=== PATIENT | female | born 1990 | race Caucasian/White ===

== ENCOUNTER 2023-08-12 19:07 | Emergency (ER) | payer SELFPAY ==
--- NOTE | ~2023-08-12 | XR_ITS ---
XR chest 1V portable DATE: 08/12/2023 19:44 INDICATION: Sudden onset of anterior left chest pain TECHNIQUE: Portable AP chest on 08/12/2023 1929 hours COMPARISON: None FINDINGS: Normal heart size. No hilar or mediastinal enlargement. No pulmonary infiltrate or consolid ation, pleural effusion or pulmonary vascular congestion or pneumothorax. IMPRESSION: Negative Reviewed, dictated and finalized at location A. IMPRESSION: Negative
--- NOTE | 2023-08-12 19:18 | ECG_ITS ---
Measurements Intervals [place] Rate: 97 P: 30 MA: 129 QRS: 62 QRSD: 82 T: 9 QT: 318 QTc: 405 Interpretive Statements SINUS RHYTHM WITH MARKED SINUS ARRHYTHMIA DELAYED PRECORDIAL R/S TRANSITION BASELINE ARTIFACT- I, II, III, AVR, AVL, AVF, V3-V4, V6 BORDERLINE ECG NO PREVIOUS ECG AVAILABLE FOR COMPARISON Electronically Signed On 08-12-2023 20:25:28 CDT by Adam Jurado D.O.
[2023-08-12 19:21] VITALS: BP 144/104; PULSE 107; RESP 18; TEMP 36.6; O2SAT 100
[2023-08-12 19:24] VITALS: PULSE 115
--- NOTE | 2023-08-12 19:32 | ED.CHESTPAIN ---
HPI - Chest Pain General Chief Complaint: Chest Pain Stated Complaint: cp Time Seen by Provider: 08/12/23 19:16 Source: patient and EMS Mode of arrival: EMS Limitations: no limitations History of Present Illness HPI narrative: 32 years old white female came to the emergency room by ambulance from work because of sudden onset of severe left chest pain, sharp stabbing, worse with breathing and certain movement, started 1 hour prior to arrival. Patient on antidepression and antianxiety medication, she denies any fever, chills, nausea, vomiting, shortness of breath, back pain. Patient works at the assisted as a FIBER ARTIST. Related Data Allergies Allergy/AdvReac Type Severity Reaction Status Date / Time aspirin Allergy Swelling Verified 08/12/23 19:25 Penicillins Allergy Unknown Verified 08/12/23 19:25 Review of Systems Review of Systems: All systems reviewed & are unremarkable except as noted in HPI and below Exam Narrative: General appearance: Well-developed, well-nourished, hyperventilating, restless, anxious Skin: Normal color Head: Normocephalic, nontraumatic Eyes: Clear conjunctiva ENT: Oropharynx normal, ears normal, nose normal Neck: Supple, nontender Chest and respiratory: Airway patent, no respiratory distress, no accessory muscle use, severe tenderness left chest with light palpation, no bruises, no swelling or rash Heart: Regular rate/rhythm, tachycardia Abdomen: Soft, nontender, no organomegaly, quiet bowel sounds Vascular: Normal peripheral pulses, normal capillary refill. Musculoskeletal: Normal range of motion, nontender back Neurologic: Alert and oriented ?3, [employer] is normal as tested, no gross motor deficit Course Reevaluation(s) Reevaluation #1: Feeling much better after Ativan IV, still have some discomfort with breathing and certain movement. Date: 08/12/23 Time: 21:26 Vital Signs Vital signs: Vital Signs Temperature 36.6 C 08/12/23 19:21 Pulse Rate 107 H 08/12/23 19:21 Respiratory Rate 18 08/12/23 19:21 Blood Pressure 144/104 H 08/12/23 19:21 Pulse Oximetry 100 08/12/23 19:21 Oxygen Delivery Room Air 08/12/23 19:21 Temperature 36.6 C 08/12/23 19:21 Pulse Rate 83 08/12/23 20:36 Respiratory Rate 15 08/12/23 20:36 Blood Pressure 124/73 08/12/23 20:36 Pulse Oximetry 100 08/12/23 20:36 Oxygen Delivery Room Air 08/12/23 19:21 MDM - Chest Pain MDM Narrative Medical decision making narrative: Patient work as a FIBER ARTIST, history of anxiety depression, patient is homosexual presented to the ED with sudden onset of severe left chest pain, patient screaming, crying, physical examination showed severe tenderness with light touch of the left chest, hyperventilation. Differential diagnosis anxiety-like symptoms, musculoskeletal, pulmonary embolism Work-up today include CBC, CMP, troponin, D-dimer, chest x-ray, EKG showed no acute abnormalities. Patient received 1 mg of Ativan IV, was remarkable improvement, heart rate on arrival 107, currently 80 bpm, patient feeling much better, her at the bedside,. Cardiac score is 0 Musculoskeletal and/or anxiety-like symptoms is my concern. the pt was discharged to home.the pt,s condition upon discharge was fair,education was provided to the pt in reference to the final impression,discharge study results,treatment,prognosis and need for follow up . Differential Diagnosis Differential diagnosis: Likely atypical chest pain, costochondritis and other (Anxiety-like symptoms) Medical Records Data Attestation: I reviewed the patient's medical records. Lab Data Attestation: I reviewed the patient's lab results. 08/12/23 19:41 08/12/23 19:41
[2023-08-12 19:57] LABS: Basophils Absolute Auto 0.1 K/mm3 (0.0-0.1); Basophils Percent Auto 1.1 % (0.2-1.2); Eosinophils Absolute Auto 0.1 K/mm3 (0-0.3); Eosinophils Percent Auto 1.5 % (0-4.4); Hematocrit 41.3 % (37.0-47.0); Hemoglobin 14.6 g/dL (12.0-15.0); Immature Granulocyte Absolute 0.02 K/mm3 (0.00-0.031); Immature Granulocyte Percent A 0.2 % (0-0.5); Lymphocytes Percent Auto 30.3 % (18.3-44.2); Mean Corpuscular HGB Conc 35.4 g/dl (32-36); Mean Corpuscular Hemoglobin 30.6 pg (26-34); Mean Corpuscular Volume 86.6 fl (80-100); Mean Platelet Volume 9.9 fl (7.4-10.4); Monocytes Absolute Auto 0.6 K/mm3 (0.1-0.6); Monocytes Percent Auto 7.8 % (2.6-8.5); Neutrophils Absolute Auto 4.9 K/mm3 (1.3-6.7); Neutrophils Percent Auto 59.1 % (45.5-73.1); Platelet Count Result 364 k/mm3 (150-375); Red Blood Count 4.77 M/mm3 (4.2-5.4); Red Cell Distribution Width 11.3 % (11.5-14.5); White Blood Count 8.3 K/mm3 (4.5-10.0)
[2023-08-12] MEDS: LORazepam INJ (*CRX) 2 MG/ML VIAL 1 MG IV PUSH (19:59)
[2023-08-12 20:09] LABS: INR 1.1; Partial Thromboplastin Time 28.9 SECONDS (22.3-36.8)
[2023-08-12 20:10] LABS: Alanine Aminotransferase 20 U/L (6-35); Albumin Level 4.9 g/dL (3.5-5.1); Alkaline Phosphatase 67 U/L (38-126); Anion Gap 14 mmol/L (8-16); Aspartate Amino Transferase 23 U/L (14-36); Bilirubin,Total 0.6 mg/dL (0.2-1.3); Blood Urea Nitrogen 12 mg/dL (7-17); Calcium 9.9 mg/dL (8.4-10.2); Carbon Dioxide 19 mmol/L (22-30); Chloride 106 mmol/L (98-107); Estimated CRCL calculation 116 ml/min; Estimated Glomerular Filt Rate > 60; Glucose 95 mg/dL (65-110); Potassium 3.6 mmol/L (3.4-5.0); Sodium 139 mmol/L (137-145)
[2023-08-12 20:18] LABS: D Dimer < 0.27 ug/mL (<0.48)
[2023-08-12 20:19] LABS: Troponin I < 0.012 ng/mL (0.000-0.034)
[2023-08-12 20:36] VITALS: BP 124/73; PULSE 83; RESP 15; O2SAT 100
[2023-08-12] MEDS: ONDANSETRON INJ 4 MG/2 ML VIAL IV PUSH (21:46)
[2023-08-12] MEDS: MORPHINE SULFATE (*CRX) 4 MG/ML INJ IV PUSH (21:46)
[2023-08-12 22:05] VITALS: BP 121/82; PULSE 104; RESP 16; O2SAT 100
== END 2023-08-12 22:06 | disposition home or self-care (01) ==
PROVIDERS: Emergency Provider Emergency Medicine; PCP Family Medicine
DX: R07.89 Other chest pain (principal); F41.9 Anxiety disorder, unspecified; F32.A Depression, unspecified; R94.31 Abnormal electrocardiogram [ECG] [EKG]
CPT/HCPCS: 36415; 71045; 80053; 84484; 85025; 85380; 85610; 85730; 93005; 96374; 96375; 99284; J2060; J2270; J2405